=== PATIENT | female | born 1975 | race Caucasian/White ===

== ENCOUNTER 2016-08-15 01:36 | Emergency (ER) | payer MEDICAID ==
[~2016-08-15] VITALS: Ht 160 cm; Wt 81.0 kg
[2016-08-15 01:39] VITALS: Ht 160 cm; Wt 81.0 kg
--- NOTE | 2016-08-15 02:30 | ERD ---
ER Documentation Chief Complaint Date/Time DATE: 08/15/16 TIME: 02:26 Chief Complaint Pt reports she needs to have DNC but previous facility did not have ability HPI 41-year-old female presents to emergency department for complaints of pelvic pain and vaginal bleeding for 2 days. Patient was seen in either emergency department yesterday, was told to be possibly miscarriage and, may need dilatation and curettage. Patient was supposed to see and follow-up with gynecology/OB specialist, was given resources of the emergency department, but patient was told to come here in the emergency department for further evaluation. Patient continues to be bleeding, vaginal bleeding, soaks 2-3 pads per day. Patient denies any flank pain. Patient complaining of pelvic pain cramping pain, 4/10 scale, accompanying the symptoms. Patient is 7 para 6 0. Patient's approximately 6 weeks . ROS All systems reviewed and are negative except as per history of present illness. Medications Home Meds Reported Medications [none] Unknown Strength No Conflict Check 08/15/16 Allergies Allergies: Coded Allergies: No Known Allergy (Verified Allergy, Unknown, N, 09/18/07) PMhx/Soc Medical and Surgical Hx: pt denies Medical Hx, pt denies Surgical Hx History of Surgery: No Anesthesia Reaction: No Hx Neurological Disorder: No Hx Respiratory Disorders: No Hx Cardiac Disorders: No Hx Psychiatric Problems: No Hx Miscellaneous Medical Probl: No Hx Alcohol Use: No Hx Substance Use: No Hx Tobacco Use: No Smoking Status: Never smoker FmHx Family History: No coronary disease, No diabetes, No other Physical Exam Vitals Vital Signs Date Time Temp Pulse Resp B/P Pulse Ox O2 Delivery O2 Flow Rate FiO2 08/15/16 04:55 87 16 132/86 97 Room Air 08/15/16 01:39 98.9 95 18 125/75 99 Physical Exam GENERAL: The patient is well developed and appropriate for usual state of health, in no apparent distress. CHEST: Clear to auscultation bilaterally. There are no rales, wheezes or rhonchi. HEART: Regular rate and rhythm. No murmurs, clicks, rubs or gallops. No S3 or S4. ABDOMEN: Soft, nontender and nondistended. Good bowel sounds. No rebound or guarding. No gross peritonitis. No gross organomegaly or masses. No Yang sign or McBurney point tenderness. BACK: No midline or flank tenderness. EXTREMITIES: Equal pulses bilaterally. There is no peripheral clubbing, cyanosis or edema. No focal swelling or erythema. Full range of motion. Grossly neurovascularly intact. NEURO: Alert and oriented. Cranial nerves 2-12 intact. Motor strength in all 4 extremities with 5/5 strength. Sensation grossly intact. Normal speech and gait. SKIN: There is no apparent rash or petechia. The skin is warm and dry. HEMATOLOGIC AND LYMPHATIC: There is no evidence of excessive bruising or lymphedema. No gross cervical, axillary, or inguinal lymphadenopathy. VAGINAL: Small amount of blood in the vaginal vault, cervical loss is closed. No adnexal tenderness or cervical motion tenderness noted Result Diagram: 08/15/16 0310 Results 24 hrs Laboratory Tests Test 08/15/16 03:10 White Blood Count 13.810^3/ul Red Blood Count 5.0210^6/ul Hemoglobin 12.9g/dl Hematocrit 39.8% Mean Corpuscular Volume 79.3fl Mean Corpuscular Hemoglobin 25.7pg Mean Corpuscular Hemoglobin Concent 32.4g/dl Red Cell Distribution Width 14.0% Platelet Count 17986^3/UL Mean Platelet Volume 11.3fl Neutrophils % 68.4% Lymphocytes % 24.1% Monocytes % 4.7% Eosinophils % 1.7% Basophils % 0.7% Nucleated Red Blood Cells % 0.0/100WBC Neutrophils # 9.410^3/ul Lymphocytes # 3.310^3/ul Monocytes # 0.710^3/ul Eosinophils # 0.210^3/ul Basophils # 0.110^3/ul Nucleated Red Blood Cells # 0.010^3/ul Urine Color LT. YELLOW Urine Clarity CLEAR Urine pH 5.5 Urine Specific [place] >=1.030 Urine Ketones NEGATIVE Urine Nitrite NEGATIVE Urine Bilirubin NEGATIVE Urine Urobilinogen 0.2 E.U./dL Urine Leukocyte Esterase NEGATIVE Urine Microscopic RBC 10-25/HPF Urine Microscopic WBC 2-5/HPF Urine Squamous Epithelial Cells MANY Urine Bacteria MANY Urine Hemoglobin 3+ Urine Glucose NEGATIVE% Urine Total Protein NEGATIVE Beta HCG, Quantitative 1203.6mIU/ml Patient brought in her results, ultrasound results done 08/13/2016 at 2126, was read by radiologist Mike Huang MD impression: There is an intrauterine gestational sac. No obvious yolk sac or pole is seen at this time. There is rounded 2.2 cm moderately echogenic finding wiithin the gestational sac of undetermined significance. Clinical correlation and follow- up is advised. Reevaluation with repeat ultrasound performed in approximately 1 week may be helpful. Beta-hCG quantitative 2293. Hemoglobin 12.7 PROCEDURE: US OB. CLINICAL INDICATION: patient with vaginal bleeding TECHNIQUE: Transabdominal and transvaginal views of the pelvis are available for review. COMPARISON: No prior studies are available for comparison. FINDINGS: Unremarkable myometrium. Cervical Nabothian cysts. There is at a complex area of fluid and soft tissue density within the endometrial canal in the lower uterine segment which measures 1.5 x 1.1 cm. No definite normal intrauterine gestational sac is seen. The endometrium appears slightly thickened and heterogeneous overall with 12 mm diameter. No free fluid is seen. The ovaries are not identified. IMPRESSION: Thickened endometrium with no normal intrauterine gestational sac seen. Complex area within the endometrial in the lower uterine segment may represent in progress with abnormal distorted gestational sac. The ovaries are not seen and ectopic is not excluded. Follow-up ultrasound may be obtained as indicated. RPTAT: HLBE Physician Pam Date Time Electronically viewed and signed by Tea Arreola Physician on 08/15/2016 03 :20 LE/ CC: NELSON SON RECORD FILING CLERK Procedures/MDM Medical Decision Making: Patients vaginal bleeding is most likely consistent of possible threatened . Patient does not show any evidence of hypovolemic shock. Patients hemoglobin and hematocrit is stable. There is low suspicion for ectopic , pain is controlled. ZOEY results show an abnormal gestational sac that was previously seen, not in the lower uterine segment consistent with possible . BetaHCG Quantitative is lower compared to last time.The patient is Rh+, does not need RhoGAM this time. There is no signs of symptoms of dehydration. There is low suspicion for sepsis. Patient appears well and is hemodynamically stable. Disposition: Home. Condition: Stable Instructions: Patient is advised to do bed rest, avoid heavy lifting, and avoid having sex until cleared by OB doctor. Patient is advised to follow up with OB doctor or here at the ER in 48 hours for reevaluation of symptoms, repeat beta HCG quantitative and ultrasound. Patient is advised that is symptoms are worst, severe bleeding, dizziness, severe abdominal pain, fever, worst signs and symptoms to return to the emergency department immediately. Departure Diagnosis: Primary Impression: Threatened Condition: Stable Patient Instructions: Possible Miscarriage (Threatened ) Additional Instructions: Patient is advised to do bed rest, avoid heavy lifting, and avoid having sex until cleared by OB doctor. Patient is advised to follow up with OB doctor or here at the ER in 48 hours for reevaluation of symptoms, repeat beta HCG quantitative and ultrasound. Patient is advised that is symptoms are worst, severe bleeding, dizziness, severe abdominal pain, fever, worst signs and symptoms to return to the emergency department immediately. NELSON SON NP Aug 15, 2016 02:30
--- NOTE | 2016-08-15 03:20 | RADRPT ---
PROCEDURE: US OB. CLINICAL INDICATION: patient with vaginal bleeding TECHNIQUE: Transabdominal and transvaginal views of the pelvis are available for review. COMPARISON: No prior studies are available for comparison. FINDINGS: Unremarkable myometrium. Cervical Nabothian cysts. There is at a complex area of fluid and soft tis carrie density within the endometrial canal in the lower uterine segment which measures 1.5 x 1.1 cm. No definite normal intrauterine gestational sac is seen. The endometrium appears slightly thickened and heterogeneous overall with 12 mm diameter. No free fluid is seen. The ovaries are not identif ied. IMPRESSION: Thickened endometrium with no normal intrauterine gestational sac seen. Complex area within the end ometrial in the lower uterine segment may represent in progress with abnormal distorted ges tational sac. The ovaries are not seen and ectopic is not excluded. Follow-up ultrasound may be obtained as indicated. RPTAT: HLBE Physician Pam Date Time Electronically viewed and signed by Tea Arreola Physician on 08/15/2016 03:20 LE/
[2016-08-15 03:33] LABS: ADD SCAN DIFF NO
[2016-08-15 03:40] LABS: BASOPHIL # 0.1 10^3/ul (0.0-0.1); BASOPHILS % 0.7 % (0.0-2.0); EOSINOPHILS # 0.2 10^3/ul (0.0-0.5); EOSINOPHILS % 1.7 % (0.0-7.0); HEMATOCRIT 39.8 % (37.0-47.0); HEMOGLOBIN 12.9 g/dl (12.0-16.0); LYMPHOCYTES # 3.3 10^3/ul (0.8-2.9); LYMPHOCYTES % 24.1 % (15.0-51.0); MEAN CORPUSCULAR HEMOGLOBIN 25.7 pg (29.0-33.0); MEAN CORPUSCULAR HGB CONC 32.4 g/dl (32.0-37.0); MEAN CORPUSCULAR VOLUME 79.3 fl (82.0-101.0); MEAN PLATELET VOLUME 11.3 fl (7.4-10.4); MONOCYTE # 0.7 10^3/ul (0.3-0.9); MONOCYTES % 4.7 % (0.0-11.0); NEUTROPHIL # 9.4 10^3/ul (1.6-7.5); NEUTROPHILS % 68.4 % (39.0-77.0); PLATELET COUNT 359 10^3/UL (140-415); RED BLOOD COUNT 5.02 10^6/ul (4.20-5.40); WHITE BLOOD COUNT 13.8 10^3/ul (4.8-10.8)
[2016-08-15 03:56] LABS: ADD UMIC YES; URINE BILIRUBIN (Dip) NEGATIVE (NEGATIVE); URINE BLOOD (Dip) 3+ (NEGATIVE); URINE COLOR LT. YELLOW (YELLOW); URINE GLUCOSE (Dip) NEGATIVE (NEGATIVE); URINE KETONES (Dip) NEGATIVE (NEGATIVE); URINE LEUKOCYTE ESTERASE (Dip) NEGATIVE (NEGATIVE); URINE NITRITE (Dip) NEGATIVE (NEGATIVE); URINE TOTAL PROTEIN (Dip) NEGATIVE (NEGATIVE); URINE UROBILINOGEN (Dip) 0.2 E.U./dL (0.1-1.0)
[2016-08-15 04:41] LABS: BACTERIA,URINE MANY; SQUAMOUS EPITHELIAL CELL,UR MANY
[2016-08-15 04:55] VITALS: BP 132/86; PULSE 87; RESP 16
== END 2016-08-15 04:58 | disposition home or self-care (01) ==
LOC: FTE 01:36
DX: O20.0 Threatened abortion (principal); Z3A.01 Less than 8 weeks gestation of pregnancy
CPT/HCPCS: 36415; 76801; 76817; 81001; 81003; 84702; 85025; 86900; 86901

== ENCOUNTER 2016-12-30 23:16 | Emergency (ER) | payer MEDICAID ==
[~2016-12-30] VITALS: Ht 154.9 cm; Wt 79.5 kg
[2016-12-30 23:20] VITALS: Ht 154.9 cm; Wt 79.5 kg
--- NOTE | 2016-12-30 23:42 | ERA ---
ER Documentation Chief Complaint Date/Time DATE: 12/30/16 TIME: 23:42 Chief Complaint BIBA RA90, BRANDON HPI . The patient is a 41-year-old female, presenting to the ER because of headache for 1 day. She was having an argument with her daughter she then became very upset and hyperventilating. Her daughter then called 911. She denies syncope, near syncope, neck pain, chest pain, dyspnea, abdominal pain. She was crying and complaining of bilateral upper extremity tingling. She does not smoke nor drink Past medical history: Diabetes mellitus, anxiety, chronic headache Past medical history: None ROS All systems reviewed and are negative except as per history of present illness. Medications Home Meds Reported Medications Metformin* (Glucophage*) 500 Mg Tab, 500 MG PO WITH MEALS, #90 TAB 12/31/16 Discontinued Reported Medications [none] Unknown Strength No Conflict Check 08/15/16 Allergies Allergies: Coded Allergies: No Known Allergy (Verified Allergy, Unknown, N, 09/18/07) PMhx/Soc History of Surgery: No Anesthesia Reaction: No Hx Neurological Disorder: No Hx Respiratory Disorders: No Hx Cardiac Disorders: No Hx Psychiatric Problems: Yes (ANXIETY) Hx Miscellaneous Medical Probl: Yes (DM) Hx Alcohol Use: No Hx Substance Use: No Hx Tobacco Use: No Smoking Status: Never smoker Physical Exam Vitals Vital Signs Date Time Temp Pulse Resp B/P Pulse Ox O2 Delivery O2 Flow Rate FiO2 12/31/16 02:50 98.2 90 20 131/82 98 Room Air 12/30/16 23:30 98.5 99 16 137/95 98 Room Air 12/30/16 23:20 98.2 98 18 123/81 96 Physical Exam Const: No acute distress.Anxious Head: Atraumatic. Eyes: Normal Conjunctiva. ENT: Normal External Ears, Nose and Mouth. Neck: Full range of motion. No meningismus. Resp: Clear to auscultation bilaterally. Cardio: Regular rate and rhythm. Abd: Soft, non distended, normal bowel sounds, non tender. Skin: No petechiae or rashes. Back: No midline or flank tenderness. Ext: No cyanosis, or edema. Neur: Awake and alert. No focal deficit Psych: Normal Mood and Affect. Result Diagram: 12/31/16 0030 12/31/16 0030 Results 24 hrs Laboratory Tests Test 12/31/16 00:30 12/31/16 02:52 White Blood Count 12.010^3/ul Red Blood Count 5.0710^6/ul Hemoglobin 13.0g/dl Hematocrit 38.7% Mean Corpuscular Volume 76.3fl Mean Corpuscular Hemoglobin 25.6pg Mean Corpuscular Hemoglobin Concent 33.6g/dl Red Cell Distribution Width 13.3% Platelet Count 05249^3/UL Mean Platelet Volume 11.8fl Neutrophils % 66.2% Lymphocytes % 22.7% Monocytes % 6.6% Eosinophils % 2.6% Basophils % 1.1% Nucleated Red Blood Cells % 0.0/100WBC Neutrophils # (Manual) 7.910^3/ul Lymphocytes # 2.710^3/ul Monocytes # 0.810^3/ul Eosinophils # 0.310^3/ul Basophils # 0.110^3/ul Nucleated Red Blood Cells # 0.010^3/ul Prothrombin Time 13.0Sec Prothrombin Time Ratio 1.0 INR International Normalized Ratio 0.98 Activated Partial Thromboplast Time 22.7Sec Sodium Level 136mmol/L Potassium Level 3.8mmol/L Chloride Level 97mmol/L Carbon Dioxide Level 23mmol/L Anion Gap 20 Blood Urea Nitrogen 10mg/dl Creatinine 0.46mg/dl Glucose Level 354mg/dl Calcium Level 9.4mg/dl Bedside Glucose 303mg/dL Current Medications Medications (Trade) Dose Ordered Sig/June Route PRN Reason Start Time Stop Time Status Last Admin Dose Admin Alprazolam 0.25 mg 0.25 mg ONCE ONCE PO 12/31/16 01:00 12/31/16 01:01 DC 12/31/16 01:13 Sodium Chloride (NS) 1,000 ml @ 1,000 mls/hr Q1H ONCE IV 12/31/16 02:30 12/31/16 03:29 12/31/16 02:47 Insulin Human Lispro (Humalog) 8 unit ONCE ONCE SC 12/31/16 02:30 12/31/16 02:31 DC 12/31/16 02:55 Procedures/MDM [place] [id number] Radiology Main Line: [phone] DIAGNOSTIC IMAGING REPORT Patient: JAMIR BANKS : 1975 Age: 41 Sex: F [id number] DOS: 12/31/16 0021 Ordering MD: SANDIP MENDEZ MD Location: E/R Room/Bed: PROCEDURE: CT Brain without contrast. CLINICAL INDICATION: Headache. TECHNIQUE: A multiplanar CT of the brain was performed on a CT scanner utilizing axial imaging from the skull base through the vertex without IV contrast. The CTDIvol is 45.01 mGy and the DLP is 720.23 mGycm. One or more of the following dose reduction techniques were utilized: Automated exposure control, adjustment of the mA and/or kV according to patient size, use of iterative reconstruction technique. COMPARISON: None FINDINGS: No evidence of intracranial hemorrhage or abnormal extra-axial fluid collection. The brain parenchyma is normal attenuation morphology with preservation of meier white differentiation and age appropriate size of the ventricles and subarachnoid spaces. The basal cisterns, posterior fossa contents, brainstem, craniocervical junction , orbits, pituitary axis, paranasal sinuses, mastoid air cells, and calvarium are unremarkable. IMPRESSION: 1. No intracranial hemorrhage or acute intracranial abnormality. RPTAT:AAJJ Physician Jairon Date Time Electronically viewed and signed by Physician Jairon on 12/31/2016 01:52 ROBBY/ CC: SANDIP MENDEZ MD MEDICAL MAKING DECISION: The patient is a 41-year-old female, presenting with acute anxiety, acute on chronic headache, acute diabetic hyperglycemia. She was treated with Xanax 0.25 mg p.o. for acute anxiety, 1 L normal saline and Humalog 8 units subcutaneously for acute diabetic hyperglycemia with good response The differential diagnoses considered include but are not limited to subarachnoid hemorrhage, occult trauma, CVA, meningitis, encephalitis, hypertension, tension, migraine, cluster, narcotic withdrawal, cervical spine disease, anxiety attack, panic attack. Departure Diagnosis: Primary Impression: Head ache Additional Impression: Hyperglycemia due to type 2 diabetes mellitus Condition: Good Comments Headache I discussed the findings with the patient. I advised the patient to follow-up with the primary physician in about 1-2 days, sooner if needed and return if any concern. The patient's blood pressure was elevated (>120/80) but appears stable without evidence of hypertension emergency or urgency. The patient was counseled about the risks of hypertension and urged to pursue outpatient monitoring and therapy within a week with their primary care physician. SANDIP MENDEZ MD Dec 30, 2016 23:42
[2016-12-31] MEDS ORDERED: ALPRAZOLAM 0.25 MG TAB PO ONE (01:00)
[2016-12-31 01:08] LABS: BASOPHIL # 0.1 10^3/ul (0.0-0.1); BASOPHILS % 1.1 % (0.0-2.0); EOSINOPHILS # 0.3 10^3/ul (0.0-0.5); EOSINOPHILS % 2.6 % (0.0-7.0); HEMATOCRIT 38.7 % (37.0-47.0); LYMPHOCYTES # 2.7 10^3/ul (0.8-2.9); LYMPHOCYTES % 22.7 % (15.0-51.0); MEAN CORPUSCULAR HEMOGLOBIN 25.6 pg (29.0-33.0); MEAN CORPUSCULAR HGB CONC 33.6 g/dl (32.0-37.0); MEAN CORPUSCULAR VOLUME 76.3 fl (82.0-101.0); MEAN PLATELET VOLUME 11.8 fl (7.4-10.4); MONOCYTE # 0.8 10^3/ul (0.3-0.9); MONOCYTES % 6.6 % (0.0-11.0); NEUTROPHILS % 66.2 % (39.0-77.0); PLATELET COUNT 301 10^3/UL (140-415); RED BLOOD COUNT 5.07 10^6/ul (4.20-5.40); RED CELL DISTRIBUTION WIDTH 13.3 % (11.5-14.5)
[2016-12-31 01:21] LABS: INR 0.98
[2016-12-31 01:22] LABS: PARTIAL THROMBOPLASTIN TIME 22.7 Sec (25.0-35.0)
[2016-12-31 01:26] LABS: CALCIUM 9.4 mg/dl (8.4-10.2); CREATININE 0.46 mg/dl (0.44-1.00); POTASSIUM 3.8 mmol/L (3.5-5.1)
--- NOTE | 2016-12-31 01:52 | RADRPT ---
PROCEDURE: CT Brain without contrast. CLINICAL INDICATION: Headache. TECHNIQUE: A multiplanar CT of the brain was performed on a CT scanner utilizing axial imaging fro m the skull base through the vertex without IV contrast. The CTDIvol is 45.01 mGy and the DLP is 72 0.23 mGycm. One or more of the following dose reduction techniques were utilized: Automated exposu re control, adjustment of the mA and/or kV according to patient size, use of iterative reconstructio n technique. COMPARISON: None FINDINGS: No evidence of intracranial hemorrhage or abnormal extra-axial fluid collection. The brain parenchyma is normal attenuation morphology with preservation of meier white differentiatio n and age appropriate size of the ventricles and subarachnoid spaces. The basal cisterns, posterior fossa contents, brainstem, craniocervical junction, orbits, pituitary axis, paranasal sinuses, mastoid air cells, and calvarium are unremarkable. IMPRESSION: 1. No intracranial hemorrhage or acute intracranial abnormality. RPTAT:AAJJ Physician Jairon Date Time Electronically viewed and signed by Physician Jairon on 12/31/2016 01:52 ROBBY/
[2016-12-31] MEDS ORDERED: INSULIN LISPRO 100 UNIT/ML VIAL SC ONE (02:30)
[2016-12-31] MEDS ORDERED: SOD CHLORIDE 0.9% 1,000 ML IV ONE (02:30)
[2016-12-31] MEDS ORDERED: METF500T4 PO (02:52)
[2016-12-31 04:13] VITALS: BP 140/89; PULSE 87; RESP 20; TEMP 98.2
== END 2016-12-31 06:36 | disposition home or self-care (01) ==
LOC: E/R 23:16
DX: R51 Headache (principal); E11.65 Type 2 diabetes mellitus with hyperglycemia; Z79.84 Long term (current) use of oral hypoglycemic drugs
CPT/HCPCS: 36415; 70450; 80048; 82962; 85025; 85610; 85730; 96360; 96372; J1815; J7030; Z7502; Z7610